=== PATIENT | male | born 1945 | race Caucasian/White ===

== ENCOUNTER 2021-03-21 09:42 | Inpatient (IN) | payer OTHER ==
[2021-03-21] MEDS ORDERED: NA CHLORIDE 0.9% 1,000 ML ONE ×4 (09:54→19:55)
[2021-03-21] MEDS ORDERED: PANTOPRAZOLE 40 MG INJ ONE ×2 (09:54→11:25)
[2021-03-21] MEDS ORDERED: OCTREOTIDE ACETATE 100 MCG/ML IV ONE ×2 (10:00→22:22)
[2021-03-21] MEDS ORDERED: PANTOPRAZOLE INJ 80 MG in NA CHLORIDE 0.9% 250 ML IV ONE (10:00)
[2021-03-21] MEDS ORDERED: OCTREOTIDE 500 MCG in NA CHLORIDE 0.9% 500 ML IV ONE (10:00)
[2021-03-21 10:06] LABS: Absolute Lymphocytes (CBC) 1.9 K/uL (0.7-4.9); Basophils % 0.9 % (0-1.3); Hematocrit 36.3 % (39.6-49.0); Lymphocytes % 18.8 % (15.3-44.8); RBC Red Blood Cell Count 3.57 M/uL (4.33-5.43)
[2021-03-21 10:18] LABS: Protime INR 1.11
[2021-03-21 10:25] LABS: Albumin 1.6 g/dL (3.4-5.0); Bilirubin Direct 0.2 mg/dL (0-0.2); Bilirubin Total 0.5 mg/dL (0.2-1.0); Protein, Total 4.3 g/dL (6.4-8.2)
[2021-03-21 10:28] LABS: Potassium 2.9 mmol/L (3.5-5.1)
[2021-03-21] MEDS ORDERED: CALCIUM GLUCONATE 1 GM IVPB 1 GM/50 ML BAG IV ONE (11:10)
[2021-03-21] MEDS ORDERED: KCL 20 MEQ/100 mL IVPB 20 MEQ/100 ML BAG IV ONE (11:10)
--- NOTE | 2021-03-21 11:18 | RAD REPORT ---
EXAM DESCRIPTION: CT - Abdomen Pelvis W Contrast - 03/21/2021 10:44 am CLINICAL HISTORY: Abdominal pain hematemesis COMPARISON: none. TECHNIQUE: Computed axial tomography of the abdomen pelvis was obtained. 100 cc Isovue-300 was admin istered intravenously. Oral contrast was not requested which limits evaluation of bowel. All CT scans are performed using dose optimization technique as appropriate and may include automated exposure control or mA/KV adjustment according to patient size. FINDINGS: Small hepatic cyst. Spleen, pancreas, adrenal and kidneys appear unremarkable. There is no evidence of diverticulitis. Wall of most of the colon appears mildly thickened. Normal appendix. Marked osteoarthritis left hip IMPRESSION: Wall of most of the colon appears mildly thickened. This may be secondary to incomplete distention or mild colitis
[2021-03-21] MEDS ORDERED: CEFTRIAXONE 1000 MG/VIAL ONE (11:25)
--- NOTE | 2021-03-21 11:50 | EDPHYS ---
Physician Documentation [facility] Name: Mickey Zimmerman Age: 76 yrs Sex: Male : 1945 Arrival Date: 03/21/2021 Time: 09:45 Bed 3 Private MD: ED Physician Mike Gillespie HPI: 03/21 09:48 This 76 yrs old Male presents to ER via Unassigned with complaints of rn Vomiting blood. 09:48 The patient presents to the emergency department vomiting blood, a moderate amount, rn bright red, Unknown. Onset: The symptoms/episode began/occurred this morning. Abdominal pain: none is appreciated. Modifying factors: The symptoms are alleviated by nothing, the symptoms are aggravated by nothing. Severity of symptoms: At their worst the symptoms were moderate in the emergency department the symptoms are unchanged. Unable to obtain HPI due to patient's inability to understand questions. It is unknown whether or not the patient has had similar symptoms in the past. It is unknown whether or not the patient has recently seen a physician. History obtained by EMS, patient hard of hearing and cannot understand questions, just points to his ears every time asked a question. EMS states found in bathroom vomiting blood and blood on top of his torso. There was also blood in the toilet but unknown if passing blood per rectum or was hematemesis. States did not give much of a history other than saying he had a cardiac history. Not known if patient is on blood thinners. Not known if this is ever happened before. EMS reports hypotensive, given 500 cc normal saline bolus as well as tranexamic acid and 4 mg of Zofran.. Historical: - Allergies: 09:53 Unable to obtain; ap3 - Home Meds: 09:53 Unable to obtain [Active]; ap3 - PMHx: 09:53 Unable to Obtain; ap3 - PSHx: 09:53 Unable to Obtain; ap3 - Immunization history:: Adult Immunizations unknown. - Social history:: Smoking status: unknown. - Family history:: not pertinent. - Hospitalizations: : No recent hospitalization is reported. - History obtained from: daughter, EMS. ROS: 09:57 Unable to obtain ROS due to patient's inability to understand questions. rn Exam: :57 Constitutional: Thin male, no acute distress, dry bright red blood on his anterior rn torso Head/Face: Normocephalic, atraumatic. Eyes: Periorbital areas with no swelling, redness, or edema. ENT: No oral laceration Cardiovascular: Tachycardic, regular. No pulse deficits. Respiratory: No increased work of breathing, no retractions or nasal flaring. Abdomen/GI: Soft, non-tender Skin: Skin shipman, no cyanosis MS/ Extremity: Pulses equal, no cyanosis. Neuro: Awake and alert, GCS 15 10:04 ECG was reviewed by the Attending Physician. rn Vital Signs: 09:49 BP 72 / 49; Pulse 99; Resp 15; Temp 97.2; Pulse Ox 99% on R/A; Weight 81.65 kg; Height ap3 5 ft. 10 in. (177.80 cm); 09:59 BP 93 / 69 LA (auto/); Pulse 83; Resp 15; Pulse Ox 96% on R/A; ap3 10:15 BP 75 / 49; Pulse 80; Resp 16; Pulse Ox 95% on R/A; tw2 11:07 BP 102 / 76; Pulse 68; Resp 16; Pulse Ox 97% on R/A; tw2 11:32 BP 128 / 69; Pulse 70; Pulse Ox 100% on R/A; ap3 12:00 BP 136 / 76; Pulse 71; Resp 16; Pulse Ox 94% on R/A; tw2 12:41 BP 144 / 96; Pulse 74; Resp 19; Pulse Ox 98% on R/A; tw2 13:17 BP 100 / 78; Pulse 89; Resp 19; Pulse Ox 95% on R/A; tw2 14:37 BP 117 / 78; Pulse 102; Resp 18; Pulse Ox 100% on R/A; ap3 09:49 Body Mass Index 25.83 (81.65 kg, 177.80 cm) ap3 MDM: 09:45 Patient medically screened. rn 09:48 ED course: Spoke with daughter on the phone, is a heavy and daily drinker. No rn known cirrhosis. Does not believe he takes any blood thinners. States only medical problem that she is aware of his high blood pressure. had been having some stomach problems recently and was scheduled for endoscopy by one of our local GI doctors but does not know the name.. 11:10 ED course: BP improved. rn 11:25 ED course: Consulted with Dr. Marino, states will consult on patient, will admit to rn hospitalist service.. 11:48 Differential diagnosis: gastritis, varices, gastric ulcer, gastric varices. Data rn reviewed: vital signs, nurses notes, lab test result(s), EKG, radiologic studies, CT scan, and as a result, I will admit patient. Data interpreted: [facility] specialist: rate is 70 beats/min, rhythm is normal sinus rhythm, regular, with no ectopy, Interpretation: normal rate, normal rhythm, Pulse oximetry: on room air is 100 %. Interpretation: normal. Counseling: I had a detailed discussion with the patient and/or guardian regarding: the historical points, exam findings, and any diagnostic results supporting the discharge/admit diagnosis, lab results, radiology results, the need for further work-up and treatment in the hospital. Response to treatment: the patient's symptoms have markedly improved after treatment, and as a result, I will admit patient. Admission orders: after a detailed discussion of the patient's condition and case, the admit orders are written by me. 03/21 09:47 Order name: Basic Metabolic Panel 03/21 09:47 Order name: CBC with Diff; Complete Time: 10:22 03/21 09:47 Order name: Hepatic Function; Complete Time: 10:30 rn 03/21 09:47 Order name: Lipase; Complete Time: 10:30 03/21 09:47 Order name: PT-INR; Complete Time: 10:22 rn 03/21 09:47 Order name: Ptt, Activated; Complete Time: 10:22 03/21 09:47 Order name: CT Abd/Pelvis - IV Contrast Only; Complete Time: 11: rn 03/21 09:47 Order name: Lactate; Complete Time: 10:30 rn 03/21 09:47 Order name: Type And Screen rn 03/21 09:48 Order name: Basic Metabolic Panel; Complete Time: 10:30 EDSC 03/21 11:51 Order name: ABO/RH no charge EDSC 03/21 11:53 Order name: COVID-19 SARS RT PCR (Document "Date of Onset" if Symptomatic) bd 03/21 09:47 Order name: IV Saline Lock; Complete Time: 09:56 rn 03/21 09:47 Order name: Labs collected and sent; Complete Time: 09:56 rn 03/21 09:47 Order name: EKG; Complete Time: 09:48 rn 03/21 09:47 Order name: EKG - Nurse/Tech; Complete Time: :56 rn 03/21 09:47 Order name: Cardiac monitoring; Complete Time: :56 rn 03/21 09:47 Order name: O2 Sat Monitoring; Complete Time: :56 rn 03/21 09:47 Order name: O2 Per Protocol; Complete Time: : rn EC:04 Rate is 89 beats/min. Rhythm is regular. Left axis deviation noted. QRS is positive in rn lead I and negative in lead aVF. OH interval is normal. QRS interval is normal. QT interval is normal. No Q waves. T waves are Normal. No ST changes noted. Clinical impression: NSR w/ Non-specific ST/T Changes. Interpreted by me. Reviewed by me. Administered Medications: 10:06 Drug: NS 0.9% 1000 ml Route: IV; Rate: 1000 ml; Site: left antecubital; ap3 14:34 Follow up: IV Status: Completed infusion ap3 10:38 Drug: ProTONIX (pantoprazole) 8 mg/hr Route: IV; Rate: 25 ml/hr; Site: left wrist; ap3 14:38 Follow up: IV Status: Infusion continued upon admission ap3 10:38 Drug: Octreotide Infusion (50 mcg/hr) - (Octreotide 500 mcg, NS 0.9% 500 ml) Route: IV; ap3 Rate: 50 ml/hr; Site: left antecubital; 14:38 Follow up: IV Status: Infusion continued upon admission ap3 10:58 Drug: Octreotide 50 mcg Route: IV; Rate: calculated rate; Site: right antecubital; ap3 11:39 Follow up: Response: No adverse reaction ap3 14:36 Follow up: IV Status: Completed infusion ap3 11:08 Not Given (Physician Discretion): Potassium Chloride 10 mEq IV at calculated rate once; ss administer over 1-2 hours 11:38 Drug: Calcium Gluconate 1 grams Route: IVPB; Infused Over: 60 mins; Site: left wrist; ap3 14:33 Follow up: IV Status: Completed infusion ap3 11:38 Drug: Potassium Chloride 20 mEq Route: IV; Rate: calculated rate; Site: left wrist; ap3 14:33 Follow up: IV Status: Completed infusion ap3 11:38 Drug: Rocephin (cefTRIAXone) 1 grams Route: IV; Rate: calculated rate; Site: right ap3 antecubital; 11:39 Follow up: IV Status: Completed infusion ap3 11:39 Drug: ProTONIX (pantoprazole) 40 mg Route: IVP; Site: left wrist; ap3 11:39 Follow up: Response: No adverse reaction ap3 11:39 Drug: NS 0.9% 1000 ml Route: IV; Rate: 1000 ml; Site: right antecubital; ap3 11:39 Follow up: IV Status: Completed infusion ap3 Disposition Summary: 03/21/21 11:50 Hospitalization Ordered Hospitalization Status: Inpatient Admission rn Provider: Douglas Horowitz rn [facility] rn Condition: Stable rn Problem: new rn Symptoms: have improved rn Bed/Room Type: Standard rn Room Assignment: 221(03/21/21 14:19) Diagnosis - Hematemesis rn - Hypotension, unspecified rn Forms: - Medication Reconciliation Form rn - SBAR form return clerk time excluding procedures: 11:48 Critical care time: Bedside Care: 30 minutes, Consultation: 5 minutes. Total time: 35 rn minutes Signatures: Dispatcher [employer] Bárbara Carpio RN RN Mike Johnson MD MD rn Smirch, Shelby, RN RN ss Prokisch, Amanda, RN RN ap3 Corrections: (The following items were deleted from the chart) 14:19 11:50 rn susi
--- NOTE | 2021-03-21 11:50 | ER ---
Nurse's Notes [facility] Name: Mickey Zimmerman Age: 76 yrs Sex: Male : 1945 Arrival Date: 03/21/2021 Time: 09:45 Bed 3 Private MD: Diagnosis: Hematemesis;Hypotension, unspecified Presentation: 03/21 09:49 Chief complaint: EMS states: they were called out for a patient vomiting blood. upon ap3 their arrival, The patient was found on the commode with blood on his face, abdomen and in the commode as well. Their on scene blood pressure was 85/58 and pulse was 102. It is reported that the patient is hard of hearing. Family that was on scene was unable to give accurate patient medical history. Coronavirus screen: At this time, the client does not indicate any symptoms associated with coronavirus-19. Ebola Screen: No symptoms or risks identified at this time. Initial Sepsis Screen: Does the patient meet any 2 criteria? Systolic BP < 90 mmHg. Mean Arterial Pressure (MAP) < 65. Yes Does the patient have a suspected source of infection? No. Patient's initial sepsis screen is negative. Risk Assessment: Do you want to hurt yourself or someone else? Patient reports no desire to harm self or others. Onset of symptoms was March 21, 2021. Care prior to arrival: Medication(s) given: Normal saline infusion, 500 mL, zofran 4 mg, 1 gram TXA. 09:49 Method Of Arrival: EMS: [facility] ap3 09:49 Acuity: DEBORA 2 ap3 Triage Assessment: 09:54 General: Appears slender, with dry blood on face and abodmen. Behavior is calm, ap3 cooperative. Pain: Denies pain. Neuro: Level of Consciousness is awake, obeys commands, Oriented to person, place, time. Cardiovascular: Capillary refill is sluggish. Respiratory: Airway is patent Respiratory effort is even, unlabored. GI: Reports diarrhea, bloody stool, vomiting, started having stomach problems yesterday, and began taking something that starts with a P. Historical: - Allergies: 09:53 Unable to obtain; ap3 - Home Meds: 09:53 Unable to obtain [Active]; ap3 - PMHx: 09:53 Unable to Obtain; ap3 - PSHx: 09:53 Unable to Obtain; ap3 - Immunization history:: Adult Immunizations unknown. - Social history:: Smoking status: unknown. - Family history:: not pertinent. - Hospitalizations: : No recent hospitalization is reported. - History obtained from: daughter, EMS. Screenin:57 Abuse screen: Denies threats or abuse. Nutritional screening: bloody vomit and stool ap3 X's 1 day. Tuberculosis screening: No symptoms or risk factors identified. Fall Risk. Fall Risk Secondary diagnosis (15 points) impaired mobility, IV access (20 points). Gait- Weak (10 pts.). Total Blackwell Fall Scale indicates High Risk Score (45 or more points). Fall prevention measures have been instituted. Side Rails Up X 2 Placed Close to Nursing Station Frequent Obs/Assessments Occuring As available patient and family educated on Fall Prevention Program and Strategies. Assessment: 10:06 Reassessment: see triage assessment. tw2 12:00 Reassessment: Patient appears in no apparent distress at this time. Patient and/or tw2 family updated on plan of care and expected duration. Pain level reassessed. 13:17 Reassessment: Patient appears in no apparent distress at this time. Patient and/or tw2 family updated on plan of care and expected duration. Pain level reassessed. 14:32 Reassessment: Patient cleaned of dried blood. ap3 Vital Signs: 09:49 BP 72 / 49; Pulse 99; Resp 15; Temp 97.2; Pulse Ox 99% on R/A; Weight 81.65 kg; Height ap3 5 ft. 10 in. (177.80 cm); 09:59 BP 93 / 69 LA (auto/); Pulse 83; Resp 15; Pulse Ox 96% on R/A; ap3 10:15 BP 75 / 49; Pulse 80; Resp 16; Pulse Ox 95% on R/A; tw2 11:07 BP 102 / 76; Pulse 68; Resp 16; Pulse Ox 97% on R/A; tw2 11:32 BP 128 / 69; Pulse 70; Pulse Ox 100% on R/A; ap3 12:00 BP 136 / 76; Pulse 71; Resp 16; Pulse Ox 94% on R/A; tw2 12:41 BP 144 / 96; Pulse 74; Resp 19; Pulse Ox 98% on R/A; tw2 13:17 BP 100 / 78; Pulse 89; Resp 19; Pulse Ox 95% on R/A; tw2 14:37 BP 117 / 78; Pulse 102; Resp 18; Pulse Ox 100% on R/A; ap3 09:49 Body Mass Index 25.83 (81.65 kg, 177.80 cm) ap3 ED Course: 09:45 Patient arrived in ED. rn 09:45 Mike Gillespie MD is Attending Physician. rn 09:53 Triage completed. ap3 09:56 Type And Screen Sent. tw2 09:56 Lactate Sent. tw2 09:56 Maintain EMS IV. Dressing intact. Good blood return noted. Site clean \T\ dry. Gauge \T\ tw 2 site: 20 g LEFT wrist and 20 g LEFT ac. 09:56 Arm band placed on. tw2 09:58 Patient has correct armband on for positive identification. Bed in low position. Call ap3 light in reach. Side rails up X2. book trimmer on. Pulse ox on. NIBP on. Warm blanket given. 10:03 Shelley Green, LANCE is Primary Nurse. ap3 10:28 Notified ED physician of a critical lab result(s). potassium 2.9. ll1 10:41 Repeat lab(s) drawn. by wv, sent to lab. Inserted saline lock: 20 gauge in right em1 forearm, using aseptic technique. Blood collected. 10:43 CT Abd/Pelvis - IV Contrast Only In Process Unspecified. EDMS 11:50 Douglas Horowitz is Hospitalizing Provider. rn 14:32 No provider procedures requiring assistance completed. Patient admitted, IV remains in ap3 place. Administered Medications: 10:06 Drug: NS 0.9% 1000 ml Route: IV; Rate: 1000 ml; Site: left antecubital; ap3 14:34 Follow up: IV Status: Completed infusion ap3 10:38 Drug: ProTONIX (pantoprazole) 8 mg/hr Route: IV; Rate: 25 ml/hr; Site: left wrist; ap3 14:38 Follow up: IV Status: Infusion continued upon admission ap3 10:38 Drug: Octreotide Infusion (50 mcg/hr) - (Octreotide 500 mcg, NS 0.9% 500 ml) Route: IV; ap3 Rate: 50 ml/hr; Site: left antecubital; 14:38 Follow up: IV Status: Infusion continued upon admission ap3 10:58 Drug: Octreotide 50 mcg Route: IV; Rate: calculated rate; Site: right antecubital; ap3 11:39 Follow up: Response: No adverse reaction ap3 14:36 Follow up: IV Status: Completed infusion ap3 11:08 Not Given (Physician Discretion): Potassium Chloride 10 mEq IV at calculated rate once; ss administer over 1-2 hours 11:38 Drug: Calcium Gluconate 1 grams Route: IVPB; Infused Over: 60 mins; Site: left wrist; ap3 14:33 Follow up: IV Status: Completed infusion ap3 11:38 Drug: Potassium Chloride 20 mEq Route: IV; Rate: calculated rate; Site: left wrist; ap3 14:33 Follow up: IV Status: Completed infusion ap3 11:38 Drug: Rocephin (cefTRIAXone) 1 grams Route: IV; Rate: calculated rate; Site: right ap3 antecubital; 11:39 Follow up: IV Status: Completed infusion ap3 11:39 Drug: ProTONIX (pantoprazole) 40 mg Route: IVP; Site: left wrist; ap3 11:39 Follow up: Response: No adverse reaction ap3 11:39 Drug: NS 0.9% 1000 ml Route: IV; Rate: 1000 ml; Site: right antecubital; ap3 11:39 Follow up: IV Status: Completed infusion ap3 Output: 14:40 Urine: 200ml (Voided); Total: 200ml. aa5 Outcome: 11:50 Decision to Hospitalize by Provider. rn 14:32 Admitted to Med/surg accompanied by tech, via stretcher, with chart. ap3 14:32 Condition: good 14:32 Discharge instructions given to patient, family, Instructed on the need for admit, Demonstrated understanding of instructions. 14:46 Patient left the ED. aa5 Signatures: Dispatcher [employer] EDMS Mike Gillespie MD MD rn Martinez, Eric em1 Leonela Cartagena RN RN aa5 Selina Vazquez RN RN tw2 Shelley Green RN RN ap3 Karen Orozco RN RN ll1 Agustina Gregg RN ss Corrections: (The following items were deleted from the chart) 13:18 12:41 BP 144 / 96; Pulse 74bpm; Resp 13bpm; Pulse Ox 98% RA; Temp 17F; tw2 tw2
--- NOTE | 2021-03-21 13:12 | P.HP ---
Certification for Inpatient Patient admitted to: Inpatient With expected LOS: >2 Midnights Practitioner: I am a practitioner with admitting privileges, knowledge of patient current condition, hospital course, and medical plan of care. Services: Services provided to patient in accordance with Admission requirements found in Title 42 Section 412.3 of the Code of Federal Regulations Patient History Date of Service: 03/21/21 Reason for admission: Hematemesis History of Present Illness: 76-year-old gentleman with a history of alcohol abuse presented to the emergency department due to episodes of hematemesis this morning. Patient stated that hematemesis was preceded by abdominal pain. He denied any melena or hematochezia. He stated he vomited several times. No more vomiting in the ED. Blood work in the ED showing mild anemia with hemoglobin of 12, hypokalemia, metabolic acidosis and elevated lactate. Abdominal CT demonstrated small hepatic cyst, no other liver pathology. Other organs and bowel unremarkable. GI-Dr. Marino contacted who is planning EGD tomorrow. Patient given octreotide IV and started on Protonix drip. He is admitted for further management. Patient is hard of hearing and history was limited. Allergies Penicillins Allergy (Verified 03/21/21 14:57) Hives/Rash - Past Medical/Surgical History -: Alcohol abuse -: Unable to obtain - Social History Smoking Status: Current every day smoker Alcohol use: Yes CD- Drugs: No Place of Residence: Home Review of Systems Other: Patient currently complaining of epigastric pain. He denied any diarrhea. Unable to obtain other ROS. Physical Examination - Physical Exam General: Alert, In no apparent distress, Disheveled HEENT: Atraumatic, Mucous membr. moist/pink, Sclerae nonicteric Neck: Supple, JVD not distended Respiratory: Clear to auscultation bilaterally, Normal air movement Cardiovascular: No edema, Regular rate/rhythm, Normal S1 S2, No murmurs Capillary refill: <2 Seconds Gastrointestinal: Normal bowel sounds, Soft and benign, Non-distended, Tenderness (Epigastrium) Musculoskeletal: No swelling, No tenderness Integumentary: No rashes, No erythema Neurological: Normal speech, Normal strength at 5/5 x4 extr, Other (Hard of hearing.) Lymphatics: No axilla or inguinal lymphadenopathy - Studies Laboratory Data (last 24 hrs) 03/21/21 09:50: PT 12.8 H, INR 1.11, APTT 26.3 03/21/21 09:50: WBC 10.10, Hgb 12.3 L, Hct 36.3 L, Plt Count 368 03/21/21 09:50: Sodium 143, Potassium 2.9 L*, BUN 16, Creatinine 1.39 H, Glucose 183 H, Total Bilirubin 0.5, AST 5 L, ALT 8 L, Alkaline Phosphatase 61, Lipase 78 Assessment and Plan - Problems (Diagnosis) (1) Upper GI bleed Current Visit: Yes Status: Acute (2) Chronic alcohol abuse Current Visit: Yes Status: Acute (3) Hyperglycemia Current Visit: Yes Status: Acute (4) Anemia Current Visit: Yes Status: Acute (5) Hearing impairment Current Visit: Yes Status: Acute (6) Hypokalemia Current Visit: Yes Status: Acute (7) Hypoalbuminemia Current Visit: Yes Status: Acute - Plan Hypoalbuminemia and likely secondary to chronic alcoholism. CT abdomen did not show liver cirrhosis. Differential diagnosis for Upper GI bleed include peptic ulcer versus esophageal varices. Admit to the medical floor. Start IV Protonix drip. Monitor H&H qQ6hrs. Pain management as needed. Transfuse p.r.n. for hemoglobin less than 2. Watch for alcohol withdrawal. GI-Dr. Marino consulted to evaluate patient. Dr. Marino is planning EGD tomorrow. Replete potassium. - Advance Directives Does patient have a Living Will: No Does patient have a Durable POA for Healthcare: No
[2021-03-21 14:34] VITALS: BMI 25.8
[2021-03-21] MEDS ORDERED: MORPHINE 2 MG/ML SYR IV PRN (14:35)
[2021-03-21 16:29] LABS: Hematocrit 31.2 % (39.6-49.0)
[2021-03-21] MEDS ORDERED: INSULIN -REGULAR HUMAN 50 UNIT/0.5 ML ML SQ SCH ×2 (16:30→18:00)
[2021-03-21] MEDS ORDERED: POTASSIUM CL 40 MEQ in NA CHLORIDE 0.9% 500 ML IV SCH (16:30)
[2021-03-21] MEDS ORDERED: ONDANSETRON 4 MG/2 ML VIAL IV PRN (19:44)
[2021-03-21] MEDS ORDERED: PANTOPRAZOLE INJ 80 MG in NA CHLORIDE 0.9% 250 ML IV SCH (20:00)
[2021-03-21] MEDS ORDERED: OCTREOTIDE 500 MCG in NA CHLORIDE 0.9% 500 ML IV SCH (20:24)
[2021-03-21] MEDS ORDERED: Pharmacy Consult 1 EA XX PRN (20:26)
[2021-03-21 20:35] LABS: Hematocrit 22.7 % (39.6-49.0)
[2021-03-21 20:44] LABS: Albumin 1.7 g/dL (3.4-5.0); Bilirubin Total 0.3 mg/dL (0.2-1.0); Potassium 5.2 mmol/L (3.5-5.1); Protein, Total 4.1 g/dL (6.4-8.2)
[2021-03-21 20:47] VITALS: TEMP 98.7
[2021-03-21] MEDS ORDERED: NA CHLORIDE 0.9% 2,000 ML IV ONE (20:54)
[2021-03-21] MEDS ORDERED: NA CHLORIDE 0.9% 1,000 ML IV ONE (20:54)
[2021-03-21] MEDS ORDERED: VANCOMYCIN 1.5 GM in NA CHLORIDE 0.9% 500 ML IVPB SCH (21:00)
--- NOTE | 2021-03-21 21:08 | P.CNS ---
Date of Consult: 03/21/21 PC: I was asked to see this 76-year-old male on an emergent basis for IV access. HPC: Patient currently has a lower GI bleed. Has active blood per rectum. He is going to be transferred to another facility but requires IV access at this time. Social Hx: Allergic to penicillin Sys R: Started hearing O/E: Tachycardic but currently stable HEENT: Trachea midline Chest: No evidence of any clavicular fractures, air entry appears to be equal bilaterally Abd: Negative Terrell: Intact Impression: Active GI bleed, being transferred to another facility, no vascular access Plan: I will place a left subclavian on this patient. I will not do a groin catheter as the patient is actively bleeding, has to be helped by the nurses the re rolling him back and forth to keep the patient clean and I feel that the subclavian is quickest and most beneficial to him at this time despite the risks. Consent forms have been signed.
--- NOTE | 2021-03-21 21:10 | P.OP ---
Preoperative diagnosis: Lack of vascular accidents, GI bleed Postoperative diagnosis: Lack of vascular access, GI bleed Primary procedure: Insertion of left subclavian catheter Anesthesia: Local Estimated blood loss: Less than 10 cc Operative Technique: The patient was placed flat on the bed with a roll between his shoulders. The area of the left chest was prepped with a chlorhexidine solution. The area was then infiltrated with 1% lidocaine. The patient was draped in the usual manner. After injecting the subclavicular area with 1% lidocaine, a finder needle was used to cannulate the left subclavian vein. We were able to get into it on the withdrawal of the needle of the first attempt. Good blood flow have been obtained, the guidewire was now passed down through the needle. A small cut was made at the insertion site of the guidewire at the skin level. The dilator was then passed over the guidewire. The dilator having been removed the catheter was then placed over the guidewire and using a modified Seldinger technique was moved in position. The patient was stable throughout. The catheter was then flushed and sutured in place. A sterile dressing was applied. A chest x-ray is pending. Complications: None Transferred to: Other (Patient remains in his room.) Condition: Good
--- NOTE | 2021-03-21 21:11 | P.PN ---
Date of Service: 03/21/21 Quick read of the chest x-ray taken directly off the machine shows no evidence of any pneumo thorax. The catheter lies in good position. It is okay for the line to be used.
[2021-03-21] MEDS ORDERED: NA CHLORIDE 0.9% 500 ML ONE (21:15)
[2021-03-21] MEDS ORDERED: OCTREOTIDE ACETATE 500 MCG/ML ONE (21:16)
[2021-03-21 21:21] LABS: Arterial Blood Carboxyhemoglob 0.6 % (0-1.5); Blood Gas Oxyhemoglobin 95.9 % (94-97); Blood O2 Saturation 97.7 % (92-98.5)
--- NOTE | 2021-03-21 21:23 | RAD REPORT ---
EXAM DESCRIPTION: RAD - Chest Single View - 03/21/2021 9:05 pm CLINICAL HISTORY: subclavian line COMPARISON: CHEST SINGLE VIEW dated 10/02/2008; Abdomen Pelvis W Contrast dated 03/21/2021 FINDINGS: Interval placement of a left subclavian line with tip overlying the proximal SVC in satisf actory position. No pneumothorax. No edema or consolidation is identified. The cardiac silhouette is normal. IMPRESSION: Left subclavian approach central venous line with tip overlying the proximal SVC in sati sfactory position for use. No pneumothorax.
[2021-03-21] MEDS ORDERED: CALCIUM GLUC 10% INJ 4.65 MEQ in NA CHLORIDE 0.9% 100 ML IV ONE (21:25)
[2021-03-21] MEDS ORDERED: RSI MEDICATION KIT IV ONE (21:34)
[2021-03-21] MEDS ORDERED: NOREPINEPHRINE 4mg/D5W 250mL 0 MG/0 ML BAG IV ONE (21:41)
[2021-03-21] MEDS ORDERED: D5W 250 ML IV ONE (21:47)
[2021-03-21] MEDS ORDERED: NOREPINEPHRINE 4 MG/4 ML VIAL ONE (21:47)
[2021-03-21] MEDS ORDERED: NOREPINEPHRINE 4 MG in D5W 250 ML IV SCH (22:00)
[2021-03-21] MEDS ORDERED: Caclcium Chloride 10% INJ SYR IV ONE (22:02)
[2021-03-21] MEDS ORDERED: EPINEPHrine 1 MG/10 ML SYR IV ONE (22:02)
[2021-03-21] MEDS ORDERED: CEFTRIAXONE 1 GM/NS 50 ML 1 GM/50 ML BAG IV SCH (23:00)
--- NOTE | 2021-03-21 23:44 | P.DS ---
Admission Date: 03/21/21 Discharge Date: 03/21/21 Disposition: Discharge Condition: Reason for Admission: Hematemesis Procedures: subclavian line placed Brief History of Present Illness: 76-year-old gentleman with a history of alcohol abuse presented to the emergency department due to episodes of hematemesis this morning. Patient stated that hematemesis was preceded by abdominal pain. He denied any melena or hematochezia. He stated he vomited several times. No more vomiting in the ED. Blood work in the ED showing mild anemia with hemoglobin of 12, hypokalemia, metabolic acidosis and elevated lactate. Abdominal CT demonstrated small hepatic cyst, no other liver pathology. Other organs and bowel unremarkable. GI-Dr. Marino contacted who is planning EGD tomorrow. Patient given octreotide IV and started on Protonix drip. Differential diagnosis for Upper GI bleed include peptic ulcer versus esophageal varices. Admitted to medical floor. Hospital Course: Rapid response was called for hypotension (75/58, 131 bpm) and tachypnea at 1950. ABG revealed ph 7.033, CO2 48.7, O2 284, Bicarb 12.4. Patient continued to have several episodes of hematemesis and hematochezia. Repeat H/H 7.2, repeat potassium 5.2. Initiated 3 L bolus of IV fluids, 2 amps of bicarb, continued protonix drip. Subclavian line was placed by surgery at 2035 and placement confirmed with CXR. Ordered octreotide bolus and drip, ceftriaxone and vancomycin and 4 units of pRBCs and 1 unit of platelets as well as 1 g of calcium gluconate. Plan to transfer patient to ICU to start levophed drip, repeat ABG and intubate for transfer. Patient accepted at [facility] by ICU and GI with instructions to transfer patient when stable. Patient was found to be choking or trying to vomit blood when he suddenly became unresponsive. Salena blue was called and team initiated CPR. Patient was intubated by ER physician at 2149 after several attempts due to extensive hematemesis despite suction. Patient received several doses of epi as well as bicarb and calcium. No shockable rhythms obtained. Code was run for 40 minutes but unable to retain a sustained pulse. Code was terminated by ER physician after 35 minutes and time of noted at 2202. Vital Signs/Physical Exam: Temp Pulse Resp BP Pulse Ox 98.7 F 93 H 18 82/59 L 94 03/21/21 20:00 03/21/21 20:00 03/21/21 20:00 03/21/21 20:00 03/21/21 20:00 Laboratory Data at Discharge: WBC 10.10 K/uL (4.3-10.9) 03/21/21 09:50 Hgb 7.2 g/dL (13.6-17.9) L D 03/21/21 20:11 Hct 22.7 % (39.6-49.0) L D 03/21/21 20:11 Plt Count 368 K/uL (152-406) 03/21/21 09:50 PT 12.8 SECONDS (9.5-12.5) H 03/21/21 09:50 INR 1.11 03/21/21 09:50 APTT 26.3 SECONDS (24.3-36.9) 03/21/21 09:50 Sodium 144 mmol/L (136-145) 03/21/21 20:11 Potassium 5.2 mmol/L (3.5-5.1) H D 03/21/21 20:11 BUN 19 mg/dL (7-18) H 03/21/21 20:11 Creatinine 1.56 mg/dL (0.55-1.3) H 03/21/21 20:11 Glucose 203 mg/dL (74-106) H 03/21/21 20:11 Total Bilirubin 0.3 mg/dL (0.2-1.0) 03/21/21 20:11 AST 7 U/L (15-37) L 03/21/21 20:11 ALT 9 U/L (12-78) L 03/21/21 20:11 Alkaline Phosphatase 54 U/L (45-117) 03/21/21 20:11 Lipase 78 U/L (73-393) 03/21/21 09:50 Followup: NONE,NONE [Primary Care Provider] -
[2021-03-22 01:22] VITALS: O2SAT 100
[2021-03-22 03:13] VITALS: BP 77/37
--- OUTSIDE RECORDS SUMMARY | 2021-03-31 08:52 | XMS REPORT | Continuity of Care Document ---
:1945 Author Organization [facility] t Address [address] [place] [address] Care Team Providers Name Role Phone SAGAR JIMENEZ Attending Clinician Unavailable AYLIN Attending Clinician Unavailable TORI Attending Clinician Unavailable SAGAR JIMENEZ Admitting Clinician Unavailable Payers Payer Name Policy Type Policy Number Effective Date Expiration Date [facility] [employer] [facility]IC[facility] [id number] 2019 ADV 00:00:00 Problems This patient has no known problems. Allergies, Adverse Reactions, Alerts This patient has no known allergies or adverse reactions. Medications This patient has no known medications. Procedures This patient has no known procedures. Encounters Start End Encounter Admission Attending Care Care Encounter Source Date/Time Date/Time Type Type Clinicians Facility Department ID 2021-03-21 Inpatient UR [facility] Gastro [id number] 21:33:08 , [facility] 2020-10-25 2020-10-25 Outpatient [facility] [id number] [place] 00:00:00 00:00:[address] 2020-09-15 2020-09-15 Outpatient [facility] [id number] [place] 00:00:00 00:00:00 [place] [address] 2020-09-15 2020-09-15 Outpatient [facility] [id number] [place] 00:00:00 00:00:00 DAMIEN [address] 2020-09-15 2020-09-15 Outpatient [facility] [id number] [place] 00:00:00 00:00:00 DAMI[facility] [address] Results This patient has no known results.
== END 2021-03-21 22:03 | disposition expired | DRG 368 ==
LOC: ER 09:42 → ERHOLD 13:03 → 2ND 14:31
PROVIDERS: ADMIT Internal Medicine; ATTEND Internal Medicine
PROC: 05H633Z Insertion of Infusion Device into Left Subclavian Vein, Percutaneous Approach (ICD-10-PCS; principal; 2021-03-21)
PROC: 5A12012 Performance of Cardiac Output, Single, Manual (ICD-10-PCS; 2021-03-21)
PROC: 0BH17EZ Insertion of Endotracheal Airway into Trachea, Via Natural or Artificial Opening (ICD-10-PCS; 2021-03-21)
PROC: 30233N1 Transfusion of Nonautologous Red Blood Cells into Peripheral Vein, Percutaneous Approach (ICD-10-PCS; 2021-03-21)
DX: I85.01 Esophageal varices with bleeding (principal); J96.01 Acute respiratory failure with hypoxia; D62 Acute posthemorrhagic anemia; E44.0 Moderate protein-calorie malnutrition; E87.2 Acidosis; K27.4 Chronic or unspecified peptic ulcer, site unspecified, with hemorrhage; I46.9 Cardiac arrest, cause unspecified; E87.6 Hypokalemia; Z68.25 Body mass index [BMI] 25.0-25.9, adult; R57.1 Hypovolemic shock; R40.4 Transient alteration of awareness; E88.09 Other disorders of plasma-protein metabolism, not elsewhere classified; K62.5 Hemorrhage of anus and rectum; F10.20 Alcohol dependence, uncomplicated; K76.89 Other specified diseases of liver; Z88.0 Allergy status to penicillin; F17.210 Nicotine dependence, cigarettes, uncomplicated; Z20.822 Contact with and (suspected) exposure to COVID-19
CPT/HCPCS: 36415; 71045; 74177; 80048; 80053; 80076; 82805; 82947; 83605; 83690; 85014; 85018; 85025; 85610; 85730; 86850; 86900; 86901; 93005; 94760; 99285; C9113; J0171; J0610; J0696; J2354; J2405; J3370; J3480; J7030; J7040; J7050; J7060; Q9967; U0003